=== PATIENT | female | born 1995 | race Caucasian/White ===

== ENCOUNTER 2018-04-10 14:45 | Emergency (ER) | payer MEDICAID, SELFPAY ==
[2018-04-10 14:46] VITALS: BP 140/75; PULSE 86; RESP 16; TEMP 36.9; O2SAT 97; BMI 18.3
--- NOTE | 2018-04-10 15:17 | ED.DCSUM_ITS ---
- ER Visit Summary Date of Service: 04/10/18 Chief Complaint: Vaginal bleeding and right pelvic pain History of Present Illness: The patient is a 22 F who presents for vaginal bleeding and right-sided pelvic pain since last night. Patient has the Mirena IUD in place for approximately 1 year. She states her periods stopped shortly after placement. She is now having the crampy pain that she rates it a 10 out of 10 and constant. Vaginal bleeding is similar to a period. Patient states she is not but did not know she could get with the Mirena in place. She has been having sexual intercourse. She has been vomiting and had diarrhea 2 days ago that resolved. She denies fever or urinary symptoms. No medical history other than depression and anxiety. She has not missed any of her medications or had any medication changes recently. Physical Examination: Vital signs: afebrile, hemodynamically stable, no hypoxia on room air General: well nourished, well developed, in no distress Skin: warm, dry, no rash, no pallor HEENT: normocephalic and atraumatic; PERRL, EOMI, moist mucous membranes Cardiovascular: regular rate and rhythm without murmurs, no peripheral edema, 2+ pulses all distal extremities Respiratory: No increased work of breathing, lungs are clear to auscultation bilaterally, no rales, rhonchi or wheezing Abdominal: Abdomen is soft, tender in the right pelvic region and suprapubic region without mass noted, with normoactive bowel sounds, no guarding or rebound, no masses, no tenderness to McBurney's point MSK: Moves all extremities, no deformities, normal strength Neuro: Awake and alert, oriented ?4. No facial droop, sensation and motor function intact and symmetric Test Results: Abnormal Lab Results 04/10/18 04/10/18 04/10/18 15:35 15:35 16:35 WBC 7.8 RBC 5.07 Hgb 14.7 Hct 44.2 MCV 87.2 MCH 29.0 MCHC 33.3 RDW 13.8 RDW Differential 43.7 Plt Count 183 MPV 10.6 Immature Gran % (Auto) 0.100 Neut % (Auto) 68.5 Lymph % (Auto) 23.9 [place] % (Auto) 5.4 Eos % (Auto) 1.8 Baso % (Auto) 0.3 Absolute Neuts (auto) 5.3 Absolute Lymphs (auto) 1.86 Total Counted Not Reportable Sodium 141 Potassium 4.1 Chloride 108 H Carbon Dioxide 24.0 Anion Gap 9 BUN 12 Creatinine 0.78 Estim Creat Clear Calc 79.64 Est GFR (MDRD) Af Amer 117 Est GFR (MDRD) Non-Af 97 BUN/Creatinine Ratio 15.5 Glucose 87 Calcium 9.6 Total Bilirubin 0.50 AST 22 ALT 22 Alkaline Phosphatase 80 Total Protein 7.2 Albumin 4.2 Globulin 3.0 Albumin/Globulin Ratio 1.4 Urine Color Urine Clarity Urine pH Ur Specific [place] Urine Protein Urine Glucose (UA) Urine Ketones Urine Occult Blood Urine Nitrite Urine Bilirubin Urine Urobilinogen Ur Leukocyte Esterase Urine RBC Urine WBC Ur Squamous Epith Cells Urine Bacteria Urine Mucus Urine Test Chlam trachomat DNA PCR Negative N.gonorrhoeae DNA (PCR) Negative 04/10/18 04/10/18 16:35 16:35 WBC RBC Hgb Hct MCV MCH MCHC RDW RDW Differential Plt Count MPV Immature Gran % (Auto) Neut % (Auto) Lymph % (Auto) [place] % (Auto) Eos % (Auto) Baso % (Auto) Absolute Neuts (auto) Absolute Lymphs (auto) Total Counted Sodium Potassium Chloride Carbon Dioxide Anion Gap BUN Creatinine Estim Creat Clear Calc Est GFR (MDRD) Af Amer Est GFR (MDRD) Non-Af BUN/Creatinine Ratio Glucose Calcium Total Bilirubin AST ALT Alkaline Phosphatase Total Protein Albumin Globulin Albumin/Globulin Ratio Urine Color Yellow Urine Clarity Clear Urine pH 6.0 Ur Specific [place] 1.020 Urine Protein Negative Urine Glucose (UA) Normal Urine Ketones Negative Urine Occult Blood 250 H Urine Nitrite Negative Urine Bilirubin Negative Urine Urobilinogen Normal Ur Leukocyte Esterase Negative Urine RBC 25-50 SEEN Urine WBC 0 SEEN Ur Squamous Epith Cells 0-5 SEEN Urine Bacteria RARE Urine Mucus 0 SEEN Urine Test Negative Chlam trachomat DNA PCR N.gonorrhoeae DNA (PCR) Medications Given Discontinued Medications Acetaminophen (Tylenol) 1,000 mg PO X1 ONE Stop: 04/10/18 15:16 Last Admin: 04/10/18 15:28 Dose: 1,000 mg Sodium Chloride () 1,000 mls @ 1,000 mls/hr IV .Q1H ONE Stop: 04/10/18 16:13 Last Admin: 04/10/18 15:37 Dose: 1,000 mls/hr Emergency Department Course and Treatment: Patient was given IV fluids and Tylenol for her pain. was negative, making ectopic of the differential. Patient had no significant anemia or electrolyte derangements. Urine was negative for infection and positive for blood. Pelvic exam did show mild active bleeding with no clots or tissue, no discharge. No cervical motion tenderness, adnexal tenderness or masses. Patient's pain is been constant, and torsion is unlikely given the description of her pain and her exam. GC and Chlamydia were negative. Patient had resolution of her symptoms after the Tylenol. We discussed that she is likely having a menstrual period with ass ociated cramping. She was encouraged to follow-up with her slack line yarder if she continues to have concerns for the bleeding with the Mirena in place. Patient agreed with this plan and was discharged home in improved condition. Treatment Plan: [] Disposition: Dysmenorrhea Impression: [] This note was generated with [employer] dictation software. It may contain incorrect words, spelling, and punctuation that were not noted in review of the chart prior to signing ED Disposition - Plan for ED Patient: Disposition: Home or Assisted Living Chief Complaint: Vag Bleeding Instructions: ED Cramping Menstrual, ED Bleeding Menstrual Heavy Referrals: Cindi Salter, MICHAEL-C [Primary Care Provider] - 1 Week if not improving Additional Instructions: Your vaginal bleeding and lower pelvic cramping is likely a menstrual period. Please take [id number] ibuprofen, naproxen or Tylenol as needed for pain. Follow-up with your slack line yarder if you continue to have heavy bleeding after 5 to 7 days. If you have any worsening of your condition or any new concerning symptoms, please return immediately to the emergency department for another evaluation.
[2018-04-10] MEDS: Acetaminophen 500 MG Tablet 1000 MG PO (15:28)
[2018-04-10] MEDS: 0.9% Normal Saline 1,000 ML 1000 ML IV (15:37)
[2018-04-10 15:48] LABS: Absolute Lymphocyte Count 1.86 X10^3/ul (0.83-4.51); Absolute Neutrophil Count 5.3 X10^3/uL (2.0-7.7); Basophil# 0.02 X10^3/uL; Basophil% 0.3 % (0-1); Eosinophil# 0.14 X10^3/uL; Eosinophils% 1.8 % (0-5); Hematocrit 44.2 % (37-47); Hemoglobin 14.7 g/dl (12.0-15.0); Lymphocyte # 1.86 X10^3/ul (4.0); Lymphocyte % 23.9 % (19-41); Mean Corp Hgb Conc 33.3 g/gl (32-36); Mean Corpuscular Volume 87.2 fL (81-99); Mean Platelet Vol. 10.6 fl (6.2-12.0); Monocyte# 0.42 X10^3/uL; Monocyte% 5.4 % (0-10); Neutrophil # 5.33 X10^3/uL (2.7-7.7); Neutrophil % 68.5 % (47-70); POSITIVE COUNT NO; POSITIVE DIFFERENTIAL NO; POSITIVE MORPHOLOGY NO; Platelet Count 183 K/mm3 (150-450); RBC Distribution Width CV 13.8 % (11.6-14.6); RBC Distribution Width SD 43.7 fl (35.1-43.9); Red Blood Count 5.07 M/mm3 (4.2-5.4); White Blood Count 7.8 K/mm3 (4.4-11.0)
[2018-04-10 16:09] LABS: ALB/GLOB Ratio 1.4 RATIO (0.9-2.4); AST(SGOT) 22 U/L (15-37); Alanine Aminotransfer ALT/SGPT 22 U/L (13-56); Albumin, Serum 4.2 g/dL (3.2-5.0); Alkaline Phosphatase 80 U/L (45-117); Anion Gap 9 (5-15); BUN 12 mg/dL (7-18); BUN/Creat Ratio 15.5 RATIO (10-20); Calcium,Total 9.6 mg/dL (8.5-10.1); Chloride 108 mmol/L (98-107); Creatinine, Serum 0.78 mg/dL (0.55-1.02); EST Glomerular Filtration Rate 97 mL/min (>60); Est Glom Filt Rate - Afr Amer 117 mL/min (>60); Estimated Creatinine Clearance 79.64 ml/min; Glucose 87 mg/dL (74-106); Potassium 4.1 mmol/L (3.5-5.1); Protein, Total 7.2 g/dL (6.4-8.2); Sodium Level 141 mmol/L (136-145)
[2018-04-10 16:41] LABS: Mucous, Urine 0 SEEN /hpf (<or=2+); White Blood Cells 0 SEEN /hpf (0-5)
[2018-04-10 16:44] LABS: Internal QC Validated? YES +Cl - CLEAR BKGD; Pregnancy, Urine Negative Negative
[2018-04-10 16:48] LABS: Color, Urine Yellow (Yellow); Glucose, Dipstick Normal (Normal); Ketone-Dipstick Negative (Negative); Leukocyte Esterase-Dipstick Negative /ul (Negative); Nitrite-Dipstick Negative (Negative); Occult Blood-Urine 250 /ul (Negative); Protein-Dipstick Negative (Negative); Urine Bilirubin Dipstick Negative (Negative); Urine Clarity Clear (Clear); Urine Urobilinogen Normal (Normal)
[2018-04-10 16:49] LABS: Red Blood Cells-Urine 25-50 SEEN /hpf (0-5); Squamous Epithelial Cells - UA 0-5 SEEN /hpf (5-10)
[2018-04-10 16:50] LABS: Bacteria RARE /hpf (None Seen)
[2018-04-10 18:22] LABS: Chlamydia Trachomatis by PCR Negative (Negative); Neisserai gonorrhoeae by PCR Negative (Negative); Probe Check PASS; Sample Adequacy Control PASS; Specimen Processing Control PASS
--- NOTE | 2018-04-10 18:24 | ED.DEP ---
ED Disposition - Plan for ED Patient: Disposition: Home or Assisted Living Chief Complaint: Vag Bleeding Instructions: ED Cramping Menstrual, ED Bleeding Menstrual Heavy Referrals: Cindi Salter NP-C [Primary Care Provider] - 1 Week if not improving Additional Instructions: Your vaginal bleeding and lower pelvic cramping is likely a menstrual period. Please take [id number] ibuprofen, naproxen or Tylenol as needed for pain. Follow-up with your ammunition storage superintendent if you continue to have heavy bleeding after 5 to 7 days. If you have any worsening of your condition or any new concerning symptoms, please return immediately to the emergency department for another evaluation.
[2018-04-10 18:38] VITALS: BP 102/69; PULSE 71; RESP 15; O2SAT 98
== END 2018-04-10 18:39 | disposition home or self-care (01) ==
PROVIDERS: Emergency Provider Emergency Medicine; Family Provider Nurse Practitioner Family; PCP Nurse Practitioner Family
DX: N94.6 Dysmenorrhea, unspecified (principal); R10.9 Unspecified abdominal pain; R19.7 Diarrhea, unspecified; R11.10 Vomiting, unspecified; Z97.5 Presence of (intrauterine) contraceptive device
CPT/HCPCS: 80053; 81001; 81025; 85025; 87210; 87491; 87591; 96360; 99284; J7030; A4216

== ENCOUNTER 2018-12-19 16:45 | Emergency (ER) | payer MEDICAID, SELFPAY ==
[2018-12-19 16:46] VITALS: BP 114/73; PULSE 92; RESP 18; TEMP 36; O2SAT 96; BMI 17.9
--- NOTE | 2018-12-19 17:10 | CT_ITS ---
STUDY: CT ABDOMEN AND PELVIS WITH CONTRAST REASON FOR EXAM: Female, 23 years old. Right lower quadrant pain. RADIATION DOSAGE (If Supplied By Facility): CTDIvol = ( 15.50 ) mGy, DLP = ( 250.56 ) mGycm TECHNIQUE: Transaxial images were obtained from the dome of the diaphragm to the symphysis pubis with oral contrast. 100ML ml of Isovue 370 contrast was administered. Sagittal and coronal images were reconstructed. Individualized dose optimization techniques were used for this CT. COMPARISON: 01/13/2017 FINDINGS: The visualized lung bases are clear. The visualized portions of the heart and pericardium are within normal limits. There are no calcified gallstones present. The liver is within normal limits. There are no suspicious hepatic lesions. The spleen is normal in size. The pancreas is within normal limits. The adrenal glands are within normal limits. There are bilateral subcentimeter nonobstructing renal collecting system stones, measuring up to 3 mm. There are no ureteral stones. There is no hydronephrosis. There is a simple cyst in the right kidney. There are no left renal lesions. Normal visualized stomach. There is no bowel obstruction or inflammation. The appendix is not visualized. There are bilateral adnexal cysts. There is an intrauterine device noted. The aorta is normal in caliber. There is no abdominal or pelvic free air, free fluid, fluid collection or lymphadenopathy. There are no destructive osseous lesions. CT/Abdomen/Pelvis WITH Contrast IMPRESSION: Bilateral adnexal cysts. This may be physiologic. If indicated, further evaluation with ultrasound can be performed. No bowel obstruction or inflammation. Appendix not visualized. Bilateral subcentimeter nonobstructing renal collecting system stones, measuring up to 3 mm. No ureteral stones No hydronephrosis. Electronically Signed: Lennox Renteria, at 19:18 EDT Tel , Service support ,
--- NOTE | 2018-12-19 17:11 | ED.VIS.GEN ---
History of Present Illness Chief Complaint: Abd Pain Detail of Chief Complaint: Right lower quadrant pain Informant: Patient Onset: Days Context: Gradual Onset Timing: Waxes and wanes Current Severity: Moderate Maximum Severity: Moderate Narrative: Patient presents with waxing and waning right lower quadrant pain for the past 2 days. She denies fever or chills. She denies nausea, vomiting, or diarrhea. She denies urinary symptoms. She has an IUD in place and does not have regular menstrual periods. She does not have a known history of ovarian cysts. Past Medical History - Allergies and Home Meds Allergies/Adverse Reactions: Allergies No Known Allergies Allergy (Verified 12/19/18 16:48) Primary Care Physician: Cindi Salter NP-C [NON-STAFF] - Prior records reviewed: Yes Past Medical History: - - Reviewed Lives: With Family Smoking Status: Never smoker Review of Systems General: Denies: Chills, Fever Eyes: Denies: Visual changes - bilaterally ENT: Denies: Bilateral ear pain Cardiovascular: Denies: Chest pain Respiratory: Denies: Dyspnea Gastrointestinal: Reports: Abdominal pain. Denies: Nausea, Vomiting, Diarrhea Genitourinary: Denies: Dysuria Musculoskeletal: Denies: Back pain Skin: Denies: Rash Neurological: Denies: Headache Endocrine: Denies: Polyuria, Polydipsia Hematologic: Denies: Easy bruising Allergy: Denies: Uticaria Physical Exam Vital Signs/Narrative: Vital Signs Temp Pulse Resp BP Pulse Ox 12/19/18 16:46 96.8 F L 92 18 114/73 96 Inital Vital Signs reviewed: Yes General: Well nourished, Well developed Eyes: Perrl ENT: Moist mucous membranes Neck: Supple Cardiovascular: Regular rate, Regular rhythm Respiratory: No distress, CTA bilaterally Abdomen: Soft, Tender - Moderate tenderness palpation in the right lower quadrant with guarding., Guarding, Hypoactive bowel sounds. Negative for: Rebound tenderness Back: Nontender Extremities: Nontender Skin: Normal color Neurological: Alert, Oriented x3 Psychological: Normal affect Diagnostic/Tx/Re-eval Impressions Abdomen/Pelvis CT 12/19/18 17:10 IMPRESSION: Bilateral adnexal cysts. This may be physiologic. If indicated, further evaluation with ultrasound can be performed. No bowel obstruction or inflammation. Appendix not visualized. Bilateral subcentimeter nonobstructing renal collecting system stones, measuring up to 3 mm. No ureteral stones No hydronephrosis. Electronically Signed: Lennox Renteria, at 19:18 EDT Tel , Service support , 12/19/18 17:10 Abdomen/Pelvis WITH Contrast [CT] Stat Laboratory Results 12/19/18 12/19/18 12/19/18 17:25 17:25 17:25 WBC 13.4 H RBC 4.56 Hgb 13.5 Hct 40.9 MCV 89.7 MCH 29.6 MCHC 33.0 RDW Std Deviation 42.5 RDW Coeff of Yasmin 12.9 Plt Count 235 MPV 10.8 Immature Gran % (Auto) 0.400 Neut % (Auto) 77.3 H Lymph % (Auto) 15.0 L [place] % (Auto) 6.5 Eos % (Auto) 0.5 Baso % (Auto) 0.3 Absolute Neuts (auto) 10.4 H Absolute Lymphs (auto) 2.01 Nucleated RBC % 0 Sodium 142 Potassium 3.5 Chloride 108 H Carbon Dioxide 29.0 Anion Gap 5 BUN 6 L Creatinine 0.64 Estim Creat Clear Calc 94.61 Est GFR (MDRD) Af Amer 144 Est GFR (MDRD) Non-Af 119 BUN/Creatinine Ratio 9.3 L Glucose 74 Calcium 9.5 Total Bilirubin 0.60 Direct Bilirubin 0.22 AST 8 L ALT 16 Alkaline Phosphatase 88 Total Protein 7.0 Albumin 3.3 Globulin 3.7 Serum , Qual NEGATIVE Urine Color Urine Clarity Urine pH Ur Specific [place] Urine Protein Urine Glucose (UA) Urine Ketones Urine Occult Blood Urine Nitrite Urine Bilirubin Urine Urobilinogen Ur Leukocyte Esterase Urine RBC Urine WBC Ur Squamous Epith Cells Amorphous Sediment Urine Bacteria Urine Mucus 12/19/18 18:30 WBC RBC Hgb Hct MCV MCH MCHC RDW Std Deviation RDW Coeff of Yasmin Plt Count MPV Immature Gran % (Auto) Neut % (Auto) Lymph % (Auto) [place] % (Auto) Eos % (Auto) Baso % (Auto) Absolute Neuts (auto) Absolute Lymphs (auto) Nucleated RBC % Sodium Potassium Chloride Carbon Dioxide Anion Gap BUN Creatinine Estim Creat Clear Calc Est GFR (MDRD) Af Amer Est GFR (MDRD) Non-Af BUN/Creatinine Ratio Glucose Calcium Total Bilirubin Direct Bilirubin AST ALT Alkaline Phosphatase Total Protein Albumin Globulin Serum , Qual Urine Color Yellow Urine Clarity Cloudy Urine pH 7.0 Ur Specific [place] 1.010 Urine Protein 15 H Urine Glucose (UA) Normal Urine Ketones Negative Urine Occult Blood 25 H Urine Nitrite Negative Urine Bilirubin Negative Urine Urobilinogen Normal Ur Leukocyte Esterase 500 H Urine RBC 0-5 SEEN Urine WBC >100 SEEN Ur Squamous Epith Cells 0-5 SEEN Amorphous Sediment 1+ PHOS Urine Bacteria RARE Urine Mucus 0 SEEN - Medical Decision Making Patient is focally tender to the right lower quadrant on exam. She denies vaginal discharge. CT scan reveals bilateral ovarian cysts with no evidence of free fluid or inflammation. Laboratory evaluation is unremarkable. Urine will be sent for a culture. She received 3 days of Bactrim and started on anti-inflammatory. She will follow-up with her EXECUTIVE OFFICE MANAGER at [facility]. ED Disposition - Plan for ED Patient: Disposition: Home or Assisted Living Diagnosis: Ovarian cyst, UTI (urinary tract infection) Instructions: Ovarian Cyst, Urinary Tract Infections in Women Prescriptions: Smz/Tmp Ds [Bactrim Ds] 1 tablet PO BID #6 tablet Naproxen [Naprosyn] 500 mg PO BID PRN #14 tablet PRN Reason: Pain Referrals: Cindi Salter, MICHAEL-C [NON-STAFF] - Sarahi Ortega CNM [Certified Nurse Gis Scientist] - 1 Week
[2018-12-19] MEDS: 0.9% Normal Saline 1,000 ML 100 ML IV (17:21)
[2018-12-19] MEDS: Morphine 2 MG/ML Syringe IV (17:22)
[2018-12-19] MEDS: Ondansetron 4 MG/2 ML Vial IV (17:22)
[2018-12-19 17:29] VITALS: BP 117/75; PULSE 76; RESP 16; O2SAT 98
[2018-12-19 17:38] LABS: Absolute Lymphocyte Count 2.01 X10^3/uL (0.83-4.51); Absolute Neutrophil Count 10.4 X10^3/uL (2.0-7.7); Basophil# 0.04 X10^3/uL; Basophil% 0.3 % (0-1); Eosinophil# 0.07 X10^3/uL; Eosinophils% 0.5 % (0-5); Hematocrit 40.9 % (37-47); Hemoglobin 13.5 g/dL (12.0-15.0); Lymphocyte # 2.01 X10^3/ul (4.0); Mean Corpuscular Hgb 29.6 pg (27.0-32.0); Mean Corpuscular Volume 89.7 fL (81-99); Mean Platelet Vol. 10.8 fl (6.2-12.0); Monocyte# 0.88 X10^3/uL; Monocyte% 6.5 % (0-10); NRBC Flagged by Analyzer 0 % (0-5); Neutrophil # 10.38 X10^3/uL (2.7-7.7); Neutrophil % 77.3 % (47-70); Platelet Count 235 K/mm3 (150-450); RBC Distribution Width CV 12.9 % (11.6-14.6); RBC Distribution Width SD 42.5 fl (35.1-43.9); Red Blood Count 4.56 M/mm3 (4.2-5.4); White Blood Count 13.4 K/mm3 (4.4-11.0)
[2018-12-19 17:46] LABS: Internal QC Validated? YES +Cl - CLEAR BKGD; Pregnancy, Serum, hCG Quali. NEGATIVE Negative
[2018-12-19 17:51] LABS: AST(SGOT) 8 U/L (15-37); Alanine Aminotransfer ALT/SGPT 16 U/L (13-56); Albumin, Serum 3.3 g/dL (3.2-5.0); Alkaline Phosphatase 88 U/L (45-117); Anion Gap 5 (5-15); BUN 6 mg/dL (7-18); BUN/Creat Ratio 9.3 RATIO (10-20); Bilirubin, Direct 0.22 mg/dL (0.00-0.30); Calcium,Total 9.5 mg/dL (8.5-10.1); Chloride 108 mmol/L (98-107); Creatinine, Serum 0.64 mg/dL (0.55-1.02); EST Glomerular Filtration Rate 119 mL/min (>60); Est Glom Filt Rate - Afr Amer 144 mL/min (>60); Estimated Creatinine Clearance 94.61 ml/min; Globulin 3.7 g/dL (2.2-4.2); Glucose 74 mg/dL (74-106); Potassium 3.5 mmol/L (3.5-5.1); Sodium Level 142 mmol/L (136-145)
[2018-12-19 18:37] LABS: Mucous, Urine 0 SEEN /hpf (<or=2+)
[2018-12-19 18:52] LABS: Color, Urine Yellow (Yellow); Glucose, Dipstick Normal (Normal); Ketone-Dipstick Negative (Negative); Leukocyte Esterase-Dipstick 500 /ul (Negative); Nitrite-Dipstick Negative (Negative); Occult Blood-Urine 25 /ul (Negative); Protein-Dipstick 15 mg/dl (Negative); Urine Bilirubin Dipstick Negative (Negative); Urine Clarity Cloudy (Clear); Urine Urobilinogen Normal (Normal)
[2018-12-19 19:02] LABS: Amorphous Sediment 1+ PHOS; Bacteria RARE /hpf (None Seen); Red Blood Cells-Urine 0-5 SEEN /hpf (0-5); Squamous Epithelial Cells - UA 0-5 SEEN /hpf (5-10); White Blood Cells >100 SEEN /hpf (0-5)
[2018-12-19 19:06] VITALS: RESP 16
[2018-12-19] MEDS: Smz/Tmp Ds Tablet 1 TABLET PO (20:04)
[2018-12-19 20:07] VITALS: PULSE 85; RESP 17; O2SAT 95
[2018-12-19 22:23] LABS: Chlamydia Trachomatis by PCR POSITIVE (Negative); Neisserai gonorrhoeae by PCR Positive (Negative); Probe Check PASS
--- NOTE | 2018-12-20 20:35 | ED.RN ---
attempted to contact patient again at this time. unable to reach or leave a voicemail. spoke with mother who is next of kin advised her to please call in and speak to nursing staff about test results. patient was attempted to be contacted at 10:15, 12:21, 16:25, 17:22 by previous shift
--- NOTE | 2018-12-20 20:44 | ED.RN ---
patient contacted and made aware of test results. Advised to treatment plan patient advised to come in for treatment and to have partners tested. patient will be in tomorrow to seek treatment
== END 2018-12-19 20:11 | disposition home or self-care (01) ==
PROVIDERS: Emergency Provider Emergency Medicine; Family Provider Family Medicine; PCP Family Medicine
DX: N83.201 Unspecified ovarian cyst, right side (principal); N39.0 Urinary tract infection, site not specified; Z97.5 Presence of (intrauterine) contraceptive device
CPT/HCPCS: 74177; 80048; 80076; 81001; 84703; 85025; 87086; 87088; 87491; 87591; 96361; 96374; 96375; 99284; J7030; Q9967; A4216; J2405

== ENCOUNTER 2018-12-22 13:43 | Emergency (ER) | payer MEDICAID, SELFPAY ==
[2018-12-22 13:44] VITALS: BP 109/59; PULSE 84; RESP 16; TEMP 36; BMI 18.0
--- NOTE | 2018-12-22 13:52 | ED.VIS.GEN ---
History of Present Illness Chief Complaint: Meds Only Narrative: Patient presenting for medications. Patient was recently in the emergency department for abdominal pain and tested positive for gonorrhea and chlamydia. She denies that she is currently having any abdominal pain vaginal discharge fevers night sweats or unintended weight loss. She is presenting for medications at this time. Past Medical History - Allergies and Home Meds Allergies/Adverse Reactions: Allergies No Known Allergies Allergy (Verified 12/19/18 16:48) Primary Care Physician: Pepe Yates III, MD [Primary Care Provider] - Past Medical History: None Smoking Status: Never smoker Review of Systems All systems negative except as indicated General: Denies: Fever, Weight loss Gastrointestinal: Denies: Abdominal pain Genitourinary: Denies: Dysuria Physical Exam Vital Signs/Narrative: Vital Signs Temp Pulse Resp BP 12/22/18 13:44 96.8 F L 84 16 109/59 L Inital Vital Signs reviewed: Yes General: Well nourished, Well developed, No Acute Distress Head: Normocephalic, Atraumatic Eyes: Perrl, EOMI ENT: Moist mucous membranes, No rhinorrhea Neck: Supple, Nontender Cardiovascular: Regular rate, Regular rhythm, No murmurs Respiratory: No distress, CTA bilaterally, Chest nontender Abdomen: Soft, Nontender, Nondistended, Normal bowel sounds Back: Nontender, Normal Inspection Extremities: Nontender, No edema Skin: Normal color, No rash Neurological: Alert, Oriented x3, Cranial nerves II-XII grossly intact, Normal Strength, Normal Sensation Psychological: Normal affect, Normal Mood Diagnostic/Tx/Re-eval - Medical Decision Making Patient presented with positive GC and Chlamydia cultures. I reviewed these in the records. Patient was treated with Rocephin and azithromycin and was discharged. ED Disposition - Plan for ED Patient: Disposition: Home or Assisted Living Diagnosis: Gonorrhea, Chlamydia Instructions: Understanding STDs, CERVICITIS (STD), Treated Referrals: Pepe Yates III, MD [Primary Care Provider] - As Needed
[2018-12-22 14:21] VITALS: RESP 16; BMI 18.0
[2018-12-22] MEDS: Ceftriaxone 500 MG Vial 250 MG IM (14:23)
[2018-12-22] MEDS: Azithromycin 250 MG Tablet 1000 MG PO (14:23)
[2018-12-22 14:26] VITALS: RESP 16
--- NOTE | 2018-12-22 14:42 | CM.ED ---
Social Work Referral: Resources Informant: Self referral Met with patient in room. This social services technician introduced self as well as social services technician role. Patient agreeable to speaking with this social services technician. Patient recently diagnosed with gonorrhea and chlamydia. Patient stating to have an understanding of diagnosis's and treatment. Patient stating to have a primary care physician, Dr. Yates. Patient denies having a ROLL RECLAIMER. This social services technician able to provide patient with list of ROLL RECLAIMER's in the area. Patient plans to contact an ROLL RECLAIMER and establish with care. Patient denies any mental health needs/concerns. Patient thanking this social services technician. All questions answered. Arun HILL, GOMEZ
== END 2018-12-22 14:48 | disposition home or self-care (01) ==
PROVIDERS: Emergency Provider Emergency Medicine; Family Provider Family Medicine; PCP Family Medicine
DX: A54.9 Gonococcal infection, unspecified (principal); A74.9 Chlamydial infection, unspecified
CPT/HCPCS: 99281

== ENCOUNTER 2020-05-27 12:00 | Emergency (ER) | payer MEDICAID, SELFPAY ==
[2020-05-27 12:01] VITALS: BP 115/69; PULSE 103; RESP 18; TEMP 37; O2SAT 98; BMI 18.3
--- NOTE | 2020-05-27 12:13 | ED.VIS.GEN ---
History of Present Illness Chief Complaint: Nausea/Vomiting Informant: Patient Narrative: 24-year-old female G3, P2 at approximately 6 weeks presents with concern for nausea and vomiting. States she is unable to keep things down for the past week. Denies any abdominal pain. Denies any vaginal bleeding or loss of vaginal fluid. Denies any fever or chills. Has any urinary symptoms. Past Medical History - Allergies and Home Meds Allergies/Adverse Reactions: Allergies No Known Allergies Allergy (Verified 05/27/20 12:03) Primary Care Physician: Pepe Yates III, MD [Primary Care Provider] - Prior records reviewed: Yes Past Medical History: None Surgical History: no surgical history Lives: With Family Smoking Status: Never smoker Alcohol: None Drugs: None Review of Systems General: Denies: Chills, Fever, Sweats Eyes: Denies: Visual changes - bilaterally, Diplopia ENT: Denies: Rhinorrhea, Sore throat Cardiovascular: Denies: Chest pain, Palpitations Respiratory: Denies: Dyspnea, Cough, Dyspnea on exertion Gastrointestinal: Reports: Nausea, Vomiting. Denies: Abdominal pain, Diarrhea, Melena, Hematochezia Genitourinary: Denies: Dysuria, Hematuria, Frequency Musculoskeletal: Denies: Back pain, Extremity Pain Skin: Denies: Rash, Wounds Neurological: Denies: Headache, Weakness, Numbness Physical Exam Vital Signs/Narrative: Vital Signs Temp Pulse Resp BP Pulse Ox 05/27/20 12:01 98.6 F 103 H 18 115/69 98 Inital Vital Signs reviewed: Yes General: Well nourished, Well developed, No Acute Distress Head: Normocephalic, Atraumatic Eyes: Perrl, EOMI ENT: Moist mucous membranes, No rhinorrhea Neck: Supple, Nontender Cardiovascular: Regular rate, Regular rhythm, No murmurs Respiratory: No distress, CTA bilaterally, Chest nontender Abdomen: Soft, Nontender, Nondistended, Normal bowel sounds Back: Nontender, Normal Inspection Extremities: Nontender, No edema Skin: Normal color, No rash Neurological: Alert, Oriented x3, Cranial nerves II-XII grossly intact, Normal Strength, Normal Sensation Psychological: Normal affect, Normal Mood Diagnostic/Tx/Re-eval Laboratory Data 05/27/20 12:22 Urine Color Yellow Urine Clarity Sl. Cloudy Urine pH 6.5 Ur Specific [place] 1.020 Urine Protein 30 H Urine Glucose (UA) Normal Urine Ketones 150 H Urine Occult Blood Negative Urine Nitrite Negative Urine Bilirubin Negative Urine Urobilinogen 4 H Ur Leukocyte Esterase 25 H Urine RBC 0 SEEN Urine WBC 0-5 SEEN Ur Squamous Epith Cells 0-5 SEEN Urine Bacteria 1+ Urine Mucus 1+ Urine Test Positive H - Medical Decision Making Appears well and nontoxic. Slightly tachycardic. Patient given 1 L of normal saline as well as Zofran. Patient has a slight ketonuria without evidence of infection. Patient feeling much improved following Zofran will be given this for home. Advised on continued hydration. Asked to keep her appointment with her UPKEEP WORKER next week. Asked to return for new or worsening symptoms. Patient agreeable and discharged home in stable condition. Impression: 1. Nausea and vomiting in first trimester ED Disposition - Plan for ED Patient: Disposition: Home or Assisted Living Instructions: ED Vomiting (Adult), Care for a Healthy Baby Prescriptions: Ondansetron [Zofran Odt] 4 mg PO Q8H PRN PRN #10 tab PRN Reason: Nausea Prescription Printed Referrals: Pepe Yates III, MD [Primary Care Provider] - 2 Days
[2020-05-27 12:28] LABS: Red Blood Cells-Urine 0 SEEN /hpf (0-5)
[2020-05-27] MEDS: 0.9% Normal Saline 1,000 ML 999 ML IV (12:30)
[2020-05-27] MEDS: Ondansetron 4 MG/2 ML Vial IV (12:30)
[2020-05-27 12:38] LABS: Color, Urine Yellow (Yellow); Glucose, Dipstick Normal (Normal); Leukocyte Esterase-Dipstick 25 /ul (Negative); Nitrite-Dipstick Negative (Negative); Occult Blood-Urine Negative /ul (Negative); Protein-Dipstick 30 mg/dl (Negative); Urine Bilirubin Dipstick Negative (Negative); Urine Clarity Sl. Cloudy (Clear); Urine Urobilinogen 4 mg/dl (Normal); Urine pH 6.5 (5.0 - 8.0)
[2020-05-27 12:41] LABS: Ketone-Dipstick 150 mg/dl (Negative)
[2020-05-27 12:43] LABS: Bacteria 1+ /hpf (None Seen); Mucous, Urine 1+ /hpf (<or=2+); Squamous Epithelial Cells - UA 0-5 SEEN /hpf (5-10); White Blood Cells 0-5 SEEN /hpf (0-5)
[2020-05-27 12:44] LABS: Internal QC Validated? YES +Cl - CLEAR BKGD; Pregnancy, Urine Positive Negative
--- NOTE | 2020-05-27 12:45 | ED.RN ---
DR NOTIFIED OF + PREG RESULTS AND URINE [id number]. NNO VOICED.
[2020-05-27 13:56] VITALS: BP 110/78; PULSE 88; RESP 18; O2SAT 98
== END 2020-05-27 13:56 | disposition home or self-care (01) ==
PROVIDERS: Emergency Provider Emergency Medicine; PCP Family Medicine
DX: O21.9 Vomiting of pregnancy, unspecified (principal); Z3A.01 Less than 8 weeks gestation of pregnancy
CPT/HCPCS: 81001; 81025; 96361; 96374; 99282; J7030; A4216; J2405

== ENCOUNTER 2021-01-23 09:25 | Inpatient (IN) | payer MEDICAID, SELFPAY ==
[2021-01-23] VITALS (42 sets, daily range): BP systolic 93–137; BP diastolic 51–92; PULSE 62–122; RESP 16–18; TEMP 35.9–36.9; O2SAT 93–100; BMI 25.3
[2021-01-23 08:56] LABS: ROM Internal Control Test YES-OK TO RESULT pt. (Internal QC); ROM Patient Test Negative (Negative)
--- NOTE | 2021-01-23 09:02 | PCM.HP.OB ---
HPI - General General Date of Admission: 01/23/21 HPI Narrative GABRIELLE TEJADA, is a 25 F at 40.6 weeks who presents to unit with contractions that started this morning. Denies any loss of fluid or vaginal bleeding. Positive movement. Patient was scheduled for an induction of labor today for postdates. complicated by benign gestational thrombocytopenia, positive GBS, and Rubella non-immune status. Maternal Data Information LUPE Calculator Estimated Delivery Date Method Current WG Current Estimate 01/17/21 Manual 40w 6d PFSH PFSH Medical History Anxiety Depression macrosomia Home Medications ondansetron 4 mg PO Q8H PRN PRN #10 tab 05/27/20 [Rx Last Taken Unknown] vit-iron fum-folic ac [ Fa] 1 tab PO DAILY 01/23/21 [History Last Taken Unknown] Allergy/AdvReac Type Severity Reaction Status Date / Time No Known Allergies Allergy Verified 01/23/21 08:09 Surgical History no surgical history Social History Smoking Status: Never smoker History Elective abortions Hx Para 2 Spontaneous abortions Hx # Term Pregnancies Ectopic pregnancies Hx # Pregnancies Multiple births # of living children NST FHR Rate Baby A Baseline: 125 Variability:: Moderate Accelerations:: 15 x 15 Decelerations:: None NST Reactive:: Yes FHR Category:: Category I Uterine Activity:: TOCO reading every 2-5 minutes- palpate moderate and relaxed in between ROS Eyes Eyes: Denies blurry vision, change in vision or spots in vision ENT HEENT: Denies dizziness or headache(s) Cardiovascular Cardiovascular: Denies abdominal pain, chest pain or dyspnea Respiratory/Chest Respiratory/Chest: Denies cough, dyspnea, shortness of breath at rest or shortness of breath with exertion Gastrointestinal Gastrointestinal: Denies abdominal pain, diarrhea or vomiting Genitourinary Genitourinary: Denies change in urinary stream, difficulty urinating or dysuria Musculoskeletal Musculoskeletal: Reports none Integumentary Integumentary: Denies rash Neurologic Neurologic: Denies dizziness, headache(s), memory loss or weakness Psychiatric Psychiatric: Reports none Vital Signs Vital Signs Vital Signs: 01/23/21 08:16 01/23/21 10:29 01/23/21 10:34 Temperature 97.0 F L Temperature Source Temporal Pulse Rate 86 79 119 H Blood Pressure 117/74 108/78 BP Systolic 117 108 BP Diastolic 74 78 Pulse Ox 99 100 99 01/23/21 10:39 01/23/21 10:57 01/23/21 10:58 Temperature Temperature Source Pulse Rate 104 H 88 97 Blood Pressure 118/66 BP Systolic 118 BP Diastolic 66 Pulse Ox 99 93 01/23/21 11:00 01/23/21 11:03 01/23/21 11:05 Temperature Temperature Source Pulse Rate 96 91 Blood Pressure 137/92 H BP Systolic 137 BP Diastolic 92 Pulse Ox 99 98 01/23/21 11:06 01/23/21 11:10 01/23/21 11:11 Temperature Temperature Source Pulse Rate 98 112 H Blood Pressure 129/66 H 129/71 H BP Systolic 129 129 BP Diastolic 66 71 Pulse Ox 97 01/23/21 11:15 01/23/21 11:16 01/23/21 11:20 Temperature Temperature Source Pulse Rate 98 90 90 Blood Pressure 121/70 H BP Systolic 121 BP Diastolic 70 Pulse Ox 98 99 01/23/21 11:22 01/23/21 11:25 01/23/21 11:26 Temperature Temperature Source Pulse Rate 81 85 83 Blood Pressure 115/77 117/68 BP Systolic 115 117 BP Diastolic 77 68 Pulse Ox 98 01/23/21 11:30 01/23/21 11:31 01/23/21 11:35 Temperature Temperature Source Pulse Rate 78 78 Blood Pressure 109/70 BP Systolic 109 BP Diastolic 70 Pulse Ox 99 97 01/23/21 11:36 01/23/21 11:40 01/23/21 11:42 Temperature Temperature Source Pulse Rate 75 78 77 Blood Pressure 99/58 L 104/64 BP Systolic 99 104 BP Diastolic 58 64 Pulse Ox 100 01/23/21 11:45 01/23/21 11:47 01/23/21 11:50 Temperature Temperature Source Pulse Rate 81 73 Blood Pressure 110/55 L BP Systolic 110 BP Diastolic 55 Pulse Ox 100 100 01/23/21 11:51 01/23/21 12:32 01/23/21 14:06 Temperature 97.1 F L 97.6 F L Temperature Source Temporal Temporal Pulse Rate 75 71 72 Blood Pressure 113/59 L 106/55 L 102/55 L BP Systolic 113 106 102 BP Diastolic 59 55 55 Pulse Ox 100 100 01/23/21 15:11 01/23/21 15:12 01/23/21 15:23 Temperature Temperature Source Pulse Rate 122 H 72 97 Blood Pressure 99/58 L 93/59 L BP Systolic 99 93 BP Diastolic 58 59 Pulse Ox 98 01/23/21 15:46 01/23/21 15:55 01/23/21 16:00 Temperature 98.4 F Temperature Source Pulse Rate 92 95 Blood Pressure 134/62 H 133/65 H BP Systolic 134 133 BP Diastolic 62 65 Pulse Ox 01/23/21 16:10 01/23/21 16:25 01/23/21 16:40 Temperature Temperature Source Pulse Rate 75 62 76 Blood Pressure 128/62 H 117/58 L 128/59 H BP Systolic 128 117 128 BP Diastolic 62 58 59 Pulse Ox Weight Weight: 138 lb 10.732 oz Body Mass Index (BMI) 25.3 Physical Exam Const alert, oriented x3 and no apparent distress General Appearance: cooperative Orientation / Consciousness: awake Exam Limitations: no limitations HEENT normocephalic Head and Scalp: normal to inspection Eyes General Eye: normal appearance of both eyes Neck full ROM and no lymphadenopathy Lymph Lymphatic: no lymphadenopathy noted Chest inspection of chest normal Resp normal respiratory effort, normal air movement and clear to auscultation bilaterally Effort and Inspection: able to speak in complete sentences and symmetric chest movement Cardio regular rate and regular rhythm GI normal to inspection, nondistended, normoactive bowel sounds Manual OB Exam: dilated 3.5, effaced 80 and station -2 Back/Spine normal ROM Extremity full ROM and no calf tenderness Skin no rashes or lesions noted General Skin Exam: no breakdown Neuro oriented x3 and CN's II-XII intact bilaterally Psych mental status grossly normal and thought process normal Labs Labs Labs: Blood Type O POSITIVE Antibody Screen NEGATIVE Hct 38.6 % (37-47) Hgb 13.3 g/dL (12.0-15.0) Neisseria gonorrhoeae DNA (RUBIA) Negative (Negative-) C.trachomatis DNA (PCR) POSITIVE (Negative) H Rhogam given: No Rubella non immune HB- neg HC- neg RPR- NR HIV- NR GC/CH- negative GBS - positive Covid 19- negative on 01/20/21 Assessment & Plan (1) Spontaneous onset of labor: (2) 40 weeks gestation of : (3) Benign gestational thrombocytopenia: QUALIFIERS: Trimester: unspecified trimester Qualified Code(s): O99.119 - Other diseases of the blood and blood-forming organs and certain disorders involving the immune mechanism complicating , unspecified trimester; D69.6 - Thrombocytopenia, unspecified COMMENT: 12/24/20 platelets 124 (4) History of depression: PLAN: Admit to labor and delivery Routine labs Start IV fluids and titrate per orders GBS positive- Start PCN 5 million units IV x 1 then PCN 3 million units IV every 4 hours until delivery Epidural when indicated Start Pitocin IV and titrate per policy Anticipate Dr. Pineda notified of admission and is collaborating physician
[2021-01-23] MEDS: Lactated Ringers 1,000 ML 50 ML IV (09:50)
[2021-01-23] MEDS: Lactated Ringers 500 ML 999 ML IV (10:00)
[2021-01-23 10:07] LABS: Absolute Lymphocyte Count 1.75 X10^3/uL (0.83-4.51); Absolute Neutrophil Count 9.3 X10^3/uL (2.0-7.7); Basophil# 0.04 X10^3/uL; Basophil% 0.3 % (0-1); Eosinophil# 0.06 X10^3/uL; Eosinophils% 0.5 % (0-5); Hematocrit 38.6 % (37-47); Hemoglobin 13.3 g/dL (12.0-15.0); Lymphocyte # 1.75 X10^3/ul (0.83-4.51); Lymphocyte % 14.8 % (19-41); Mean Corp Hgb Conc 34.5 g/dL (32-36); Mean Platelet Vol. 12.3 fl (6.2-12.0); Monocyte# 0.58 X10^3/uL; Monocyte% 4.9 % (0-10); NRBC Flagged by Analyzer 0 % (0-5); Neutrophil # 9.29 X10^3/uL (2.7-7.7); Neutrophil % 78.6 % (47-70); Platelet Count 119 K/mm3 (150-450); RBC Distribution Width CV 12.7 % (11.6-14.6); RBC Distribution Width SD 41.6 fl (35.1-43.9); Red Blood Count 4.29 M/mm3 (4.2-5.4); White Blood Count 11.8 K/mm3 (4.4-11.0)
[2021-01-23 10:42] LABS: Amphetamine Urine VISTA NEGATIVE (<1000 ng/mL); Barbiturate Urine VISTA NEGATIVE (< 200 ng/mL); Benzodiazepine Urine VISTA NEGATIVE (< 200 ng/mL); Cocaine Urine VISTA NEGATIVE (< 300 ng/mL); Ecstacy Urine VISTA NEGATIVE (< 500 ng/mL); Methadone Urine VISTA NEGATIVE (< 300 ng/mL); PCP Urine VISTA NEGATIVE (< 25 ng/mL); THC Urine VISTA NEGATIVE (< 50 ng/mL); Vista UDS pH Range 7
[2021-01-23] MEDS: fentaNYL-bupivacaine (epidural) 100 ML BAG EPIDURAL (11:26)
[2021-01-23] MEDS: Oxytocin 30 units/NS 500 ml 30 UNITS/500 ML IV.SOLN IV (11:37)
--- NOTE | 2021-01-23 13:08 | PCM.PN.BLA ---
Progress Note Patient seen at bedside. Comfortable with epidural anesthesia. Physical Exam Const alert and no apparent distress General Appearance: cooperative and comfortable Exam Limitations: no limitations HEENT normocephalic Eyes General Eye: normal appearance of both eyes Neck full ROM General: normal visual inspection Chest Chest: symmetrical chest wall rise Resp normal respiratory effort and normal air movement Effort and Inspection: symmetric chest movement Auscultation: clear to auscultation bilaterally Cardio regular rate and regular rhythm GI normal to inspection, nondistended, normoactive bowel sounds Manual OB Exam: dilated 4.5, effaced 80 and station 0 Amniotic Fluid: clear amniotic fluid Back/Spine normal ROM Extremity full ROM and no calf tenderness General Extremity: normal exam except as noted Skin no rashes or lesions noted Neuro CN's II-XII intact bilaterally Psych mental status grossly normal Assessment & Plan Assessment/Plan (1) Spontaneous rupture of amniotic membranes: (2) Spontaneous onset of labor: (3) 40 weeks gestation of : PLAN: Continue present plan of care Pitocin IV - continue to titrate per policy SROM for clear fluid IUPC placed without difficulty Anticipate
[2021-01-23] MEDS: Penicillin G 3,000,000 Units 50 ML 100 UNITS IV (14:08)
[2021-01-23] MEDS: Oxytocin 30 units/NS 500 ml 30 UNITS/500 ML IV.SOLN 334 UNITS IV (14:45)
--- NOTE | 2021-01-23 15:21 | EX.PCM.OBRPT ---
Assessment & Plan (1) (spontaneous vaginal delivery): (2) hemorrhage, delivered, current hospitalization: Maternal Data Information LUPE Calculator Estimated Delivery Date Method Current WG Current Estimate 01/17/21 Manual 40w 6d Vaginal Delivery Maternal Presentation Maternal Presentation: - (Spontaneous labor) Maternal Presentation: Patient at 40.6 weeks gestation that presented in spontaneous labor. S.R.O.M for clear fluid after admission. Operative Information Date of Procedure: 01/23/21 Pre-Operative Diagnosis: Term gestation, spontaneous labor, spontaneous rupture of membranes Post-Operative Diagnosis: , live female infant Surgery / Procedure Performed: Spontaneous Vaginal Delivery Type of Anesthesia: Epidural Drain: Bucio to straight drain Estimated Blood Loss: 500 Time of Delivery: 14:43 Findings Description of Procedure: Called to room for delivery. Patient was complete and +2 station. Pushing well with contractions. head delivered with minimal maternal effort over intact perineum. Anterior shoulder, posterior shoulder and remainder of body delivered with second maternal push. Vigorous female placed on maternal abdomen. Pitocin IV started for active management of the third stage of labor. Cord blood collected from 3 vessel cord. Cord clamped and cut by FOB after 2 minute delay. Infant placed immediately skin to skin with patient. Placenta delivered spontaneously and intact several minutes later. After delivery of placenta a significant amount of bleeding noted. Uterus boggy upon palpation. No lacerations noted to vagina or perineum. Methergine IM x 1 given. Vaginal sweep completed with minimal clots expressed. Uterine exploration completed with no retained products felt on exam. Pitocin IV running wide open and uterus remained slightly boggy. Cytotec 1000 mcg VA placed. Uterus became firm and bleeding decreased. EBL 500 cc. APGARS 9/9. Patient and bonding at this time. Dr. Pineda updated on delivery and patient status. Presentation: Vertex Amniotic Membrane Rupture Type: Spontaneous Time of Membrane Rupture: 1200 Amniotic Fluid Description: Clear Placental Delivery Description: Spontaneous Placenta Disposition: [facility] Cord Vessel Description: 3 Vessels Cord Entanglement: None Infant A Gender: Female (1 minute): 9 (5 minute): 9 Delayed Cord Clamping: Yes Post Vaginal Delivery Medications Given After Delivery: IV Pitocin, IM Methergin and - (Cytotec VA) Episiotomy Description: None Laceration: None Complication Complications: None
[2021-01-23 18:27] LABS: Absolute Neutrophil Count 15.4 X10^3/uL (2.0-7.7); Basophil# 0.04 X10^3/uL; Basophil% 0.2 % (0-1); Eosinophil# 0.02 X10^3/uL; Eosinophils% 0.1 % (0-5); Hemoglobin 11.7 g/dL (12.0-15.0); Lymphocyte % 8.4 % (19-41); Mean Corp Hgb Conc 33.4 g/dL (32-36); Mean Corpuscular Hgb 30.5 pg (27.0-32.0); Mean Corpuscular Volume 91.1 fL (81-99); Mean Platelet Vol. 12.1 fl (6.2-12.0); Monocyte# 0.72 X10^3/uL; NRBC Flagged by Analyzer 0 % (0-5); Neutrophil # 15.42 X10^3/uL (2.7-7.7); Neutrophil % 86.7 % (47-70); Platelet Count 122 K/mm3 (150-450); RBC Distribution Width CV 12.7 % (11.6-14.6); RBC Distribution Width SD 41.4 fl (35.1-43.9); Red Blood Count 3.84 M/mm3 (4.2-5.4); White Blood Count 17.8 K/mm3 (4.4-11.0)
--- NOTE | 2021-01-23 18:36 | NURSING ---
Hemorrhage note: checklist completed and on chart. Provider, Christianne Barton CNM, and RN at bedside and hemorrhage completed by 1515. Charge nurse aware
[2021-01-24 03:36] VITALS: BP 103/55; PULSE 85; RESP 16; TEMP 36.7; O2SAT 97
[2021-01-24 05:58] LABS: Absolute Lymphocyte Count 2.31 X10^3/uL (0.83-4.51); Absolute Neutrophil Count 9.8 X10^3/uL (2.0-7.7); Basophil# 0.04 X10^3/uL; Basophil% 0.3 % (0-1); Eosinophil# 0.13 X10^3/uL; Hematocrit 30.5 % (37-47); Hemoglobin 10.2 g/dL (12.0-15.0); Lymphocyte # 2.31 X10^3/ul (0.83-4.51); Lymphocyte % 17.5 % (19-41); Mean Corp Hgb Conc 33.4 g/dL (32-36); Mean Corpuscular Hgb 30.9 pg (27.0-32.0); Mean Corpuscular Volume 92.4 fL (81-99); Monocyte# 0.83 X10^3/uL; Monocyte% 6.3 % (0-10); NRBC Flagged by Analyzer 0 % (0-5); Neutrophil # 9.81 X10^3/uL (2.7-7.7); Neutrophil % 74.1 % (47-70); Platelet Count 115 K/mm3 (150-450); RBC Distribution Width CV 12.6 % (11.6-14.6); RBC Distribution Width SD 42.4 fl (35.1-43.9); White Blood Count 13.2 K/mm3 (4.4-11.0)
[2021-01-24 09:30] VITALS: BP 110/61; PULSE 77; RESP 16; TEMP 36.1; O2SAT 97
[2021-01-24 12:00] VITALS: BP 111/70; PULSE 102; RESP 18; TEMP 36.4; O2SAT 96
--- NOTE | 2021-01-24 15:30 | CASEMGMT ---
Social Work Assessment Labor and Delivery Unit Patient Address: [address] [place] [address] Phone number: [phone] Date of Referral: 01/23/2021 Time of Referral: 1847 Referred By: Dr. Bowden'oswaldo Date of Intervention: 01/24/2021 Time of Intervention: 1530 Reason for Referral: THC use History obtained from: Medical records and mother of baby (MOB) Carmen Thompson; father of baby (FOB) Dorian Lagos present for part of conversation. Household composition: MOB and FOB report together, along with the MOB is 2 older children. Home situation is reportedly safe and adequate. Patient's parent/guardian status: MOB is a 25-year-old single female involved with the reported FOB for the last 2 years. FOB is 30 years old, born 12/30/1990. During private conversation with the MOB, MOB denied any domestic violence concerns. [place] baby is the first child for parents together. MOB has 2 older children's from a prior relationship. FOB reports also to have 2 older children, a boy who could be 8 but after due to delivery complications and possible substance exposure in utero. Reports to have a 7-year-old daughter who is in the custody of the grandmother. FOB reports plan to try to get custody of this child. MOB minor children include: Benjamin Stone (born 10/08/2014), Carmen Stone (born 08/31/2016), and baby janie Lagos (born 01/23/2021). Medical History: SANAM is 3, para 2 now 3 after delivering [place]. care started at 7 weeks gestation and regular thereafter. MOB with positive COVID diagnosis in April 2020. Baby janie Almazann weighed 6 pounds 6 ounces at . Apgars 9 at 1 and 5 minutes of life. Educational Status: SANAM graduated from high school, but did have an IEP in school for learning disability. History of low literacy. Financial Status: SANAM is on SSI disability for learning disability. The FOB works as a small engine mechanic. And will be is to receive child support for her older children. Supplies: MOB and FOB reported to have necessary infant supplies including car seat, safe sleep space, clothing, diapers, wipes. MOB is bottlefeeding and reports ability to purchase formula. Childcare/Caregiver(s): MOB will be the primary caregiver around the baby. Transportation: MOB does not drive, and relies on the FOB. Programs/Agencies Involved: MOB has medical and food assistance through job and family services. Reports interest in applying for WIC. Declines referrals to help me grow or early Headstart. Utilizing [facility] [employer], and community assistance with gas and electric. Children Services/Legal Issues: No reported legal issues. There was a dependency case after MOB first child was born, with [facility] children services. MOB denies any other history of children services involvement. Behavioral Health Issues: Mental Health History: MOB with a history of depression and anxiety reports some history of . Reports believe this was due to MOB really having to do everything alone with the older children and having limited support from the children's father. No reported history of any suicidal thoughts, planning, intent or attempts. No thoughts of harm to others. [place] depression screen a score of 1 during this assessment. Substance Use History: MOB endorses history of marijuana use in May to help with nausea. Reports that ceased use after that. Denies use of alcohol, prescription abuse, heroin, meth, or cocaine. Does not use tobacco. Family History: Maternal family history not discussed. FOB shares a history of substance use issues, using a little bit of everything, but clean for the last 3 years. Also a history of bipolar disorder and anxiety for the FOB. Drug Screens: Positive drug screen on 06/06/2020 for marijuana. Maternal drug screen was negative on 12/20/2020 and at time of delivery on 01/23/2021. Infant's urine drug screen is negative. Meconium is pending. Family/Social Stressors: No identified stressors at this time. Support Systems: MOB reports a good support from the FOB, and family who live in the area. Reports will have help at home going. Depression/Shaken Baby/Safe Sleeping: Reviewed safe sleeping and shaken baby prevention. Reviewed mood and anxiety disorders, risk factors, and the importance of seeking help and support. Let both parents be aware that both mothers and fathers are at risk for depression. ASSESSMENT: Met with the MOB and FOB together, and then along with the MOB. Parents were cooperative and engaged with this assembly instructions writer, as evidenced by both parents participating in conversation. Good eye contact for both. FOB (willingly when this assembly instructions writer asked, for completion on depression assessment. MOB denies any safety concerns with the FOB. Reports to feel the FOB is a good support. MOB reports that she was in part responsible for FOB being able to maintain sobriety over the last couple of years. MOB reports to have necessary supplies for the baby, and the support system to rely on if needed. MOB denies any continued substance use after initial positive drug screen. Let MOB know that substance exposure in utero does need to be reported to children services, though uncertain whether anything would be done with referral due to recent negative drug screens. MOB accepted information on [facility], mood and anxiety disorder packet and [facility] applications. Note, no voiced concerns by nursing staff regarding parent-child interactions or bonding. Safe Plan of Care for infant related to substance use: Abstain from any future marijuana use. Should use restart however, MOB would not use around or care for the children after using. PLAN: MOB and infant will discharge home. Community resource information has been provided. MOB reports intent to abstain from any future marijuana use. -PRANEETH Marrero MSW *This note was generated with [employer] dictation software. It may contain incorrect words, spelling, and punctuation that were not noted in review of the chart prior to signing*
[2021-01-24 17:00] VITALS: BP 109/64; PULSE 82; RESP 14; TEMP 36.6; O2SAT 98
--- NOTE | 2021-01-24 17:18 | PN.OBGYN_ITS ---
Subjective Subjective Doing well per patient and nursing staff. Ambulating and taking PO without difficulty. Voiding and passing flatus. Pain controlled. Bottle feeding. Denies headache, visual changes, chest pain, shortness of breath, leg pain or increased bleeding. Lochia normal. Objective Data Objective Data Vital Signs: Vital Signs Temp Pulse Resp BP Pulse Ox 97.6 F L 102 H 18 111/70 96 01/24/21 12:00 01/24/21 12:00 01/24/21 12:00 01/24/21 12:00 01/24/21 12:00 Oxygen Delivery Method Room Air Weight: 138 lb 10.732 oz Body Mass Index (BMI) 25.3 Intake & Output: Intake and Output for Last 24 Hours 01/22/21 01/23/21 01/24/21 23:59 23:59 23:59 Intake Total 2021.30 / 2021.30 Output Total 1480 / 1480 Balance 542.30 / 542.30 Lab / Micro Data Result Diagrams: 01/24/21 05:47 Labs: Laboratory Results - last 24 hr 01/23/21 18:15: WBC 17.8 H, RBC 3.84 L, Hgb 11.7 L, Hct 35.0 L, MCV 91.1, MCH 30.5, MCHC 33.4, RDW Std Deviation 41.4, RDW Coeff of Yasmin 12.7, Plt Count 122 L, MPV 12.1 H, Immature Gran % (Auto) 0.600, Neut % (Auto) 86.7 H, Lymph % (Auto) 8.4 L, [place] % (Auto) 4.0, Eos % (Auto) 0.1, Baso % (Auto) 0.2, Absolute Neuts (auto) 15.4 H, Absolute Lymphs (auto) 1.50, Nucleated RBC % 0 01/24/21 05:47: WBC 13.2 H, RBC 3.30 L, Hgb 10.2 L, Hct 30.5 L, MCV 92.4, MCH 30.9, MCHC 33.4, RDW Std Deviation 42.4, RDW Coeff of Yasmin 12.6, Plt Count 115 L, MPV 12.0, Immature Gran % (Auto) 0.800, Neut % (Auto) 74.1 H, Lymph % (Auto) 17.5 L, [place] % (Auto) 6.3, Eos % (Auto) 1.0, Baso % (Auto) 0.3, Absolute Neuts (auto) 9.8 H, Absolute Lymphs (auto) 2.31, Nucleated RBC % 0 ROS Constitutional Constitutional: Reports systems reviewed and no addt'l complaints, except as documented; Denies headache(s) Eyes Eyes: Denies acute decrease in peripheral vision, blurry vision or change in vision ENT HEENT: Reports systems reviewed and no addt'l complaints, except as documented Cardiovascular Cardiovascular: Denies chest pain or dizziness Respiratory/Chest Respiratory/Chest: Denies cough, dyspnea, dyspnea on exertion, shortness of breath at rest or shortness of breath with exertion Gastrointestinal Gastrointestinal: Denies abdominal pain, diarrhea, nausea or vomiting Genitourinary Genitourinary: Denies abdominal discomfort Musculoskeletal Musculoskeletal: Denies limited range of motion Integumentary Integumentary: Reports systems reviewed and no addt'l complaints, except as documented Neurologic Neurologic: Reports systems reviewed and no addt'l complaints, except as documented Psychiatric Psychiatric: Reports systems reviewed and no addt'l complaints, except as documented Endocrine Endocrinology: Reports systems reviewed and no addt'l complaints, except as documented Hematologic/Lymphatic Hematologic/Lymphatic: Reports systems reviewed and no addt'l complaints, except as documented Allergic/Immunologic Allergic/Immunologic: Reports systems reviewed and no addt'l complaints, except as documented Physical Exam Const alert and oriented x3 General Appearance: cooperative Orientation / Consciousness: awake, oriented to person, oriented to place and oriented to time Exam Limitations: no limitations HEENT normocephalic Head and Scalp: normal to inspection, normocephalic and atraumatic Face and Sinus: normal facial exam Eyes General Eye: normal appearance of both eyes Neck full ROM Chest Chest: symmetrical chest wall rise Resp normal respiratory effort and normal air movement Auscultation: clear to auscultation bilaterally Cardio regular rate, regular rhythm, S1 normal heart sound, S2 normal heart sound, no murmurs, no rub, no gallops and no clicks GI normal to inspection, nondistended, normoactive bowel sounds and non-tender GI Narrative: fundus firm 2 below U appearance of the vagina normal Bladder / Kidney Exam: no CVA tenderness Back/Spine normal ROM Extremity normal to inspection and full ROM Skin no rashes or lesions noted Neuro oriented x3, CN's II-XII intact bilaterally and moves all extremities Sensorium / Orientation: awake, alert and oriented to person Motor Exam: clonus absent Deep Tendon Reflexes: Rt Patellar (L4): 2+ and Lt Patellar (L4): 2+ Assessment & Plan (1) hemorrhage, delivered, current hospitalization: (2) (spontaneous vaginal delivery): COMMENT: PPD #1 PLAN: 1) Routine PP and discharge instructions. 2) Hgb stable, ferrous sulfate 325mg PO once daily upon discharge 3) Follow up in 2 weeks and 6 weeks PP 4) VSS 5) Discharge home today.
--- NOTE | 2021-01-24 17:21 | PCM.DC.SUM ---
Providers Date of Admission: 01/23/21 Primary Care Physician: No Primary Care Phys Reason For Visit: VAGINAL DELIVERY Diagnosis Discharge Diagnosis (1) hemorrhage, delivered, current hospitalization: Status: Acute Code(s): O72.1 - Other immediate hemorrhage (2) (spontaneous vaginal delivery): Status: Acute Code(s): O80 - Encounter for full-term uncomplicated delivery Medications at Discharge Home Medications vit-iron fum-folic ac 1 tab PO DAILY 01/23/21 acetaminophen 1,000 mg PO Q6H PRN PRN #0 tab 01/24/21 naproxen 500 mg PO Q8H PRN PRN #30 tab 01/24/21 Weight / BMI Weight Weight: 138 lb 10.732 oz Body Mass Index (BMI) 25.3 ABG / Lab / Microbiology Data Result Diagrams: 01/24/21 05:47 Laboratory: Laboratory Results - last 24 hr 01/23/21 18:15: WBC 17.8 H, RBC 3.84 L, Hgb 11.7 L, Hct 35.0 L, MCV 91.1, MCH 30.5, MCHC 33.4, RDW Std Deviation 41.4, RDW Coeff of Yasmin 12.7, Plt Count 122 L, MPV 12.1 H, Immature Gran % (Auto) 0.600, Neut % (Auto) 86.7 H, Lymph % (Auto) 8.4 L, [place] % (Auto) 4.0, Eos % (Auto) 0.1, Baso % (Auto) 0.2, Absolute Neuts (auto) 15.4 H, Absolute Lymphs (auto) 1.50, Nucleated RBC % 0 01/24/21 05:47: WBC 13.2 H, RBC 3.30 L, Hgb 10.2 L, Hct 30.5 L, MCV 92.4, MCH 30.9, MCHC 33.4, RDW Std Deviation 42.4, RDW Coeff of Yasmin 12.6, Plt Count 115 L, MPV 12.0, Immature Gran % (Auto) 0.800, Neut % (Auto) 74.1 H, Lymph % (Auto) 17.5 L, [place] % (Auto) 6.3, Eos % (Auto) 1.0, Baso % (Auto) 0.3, Absolute Neuts (auto) 9.8 H, Absolute Lymphs (auto) 2.31, Nucleated RBC % 0 Meaningful Use Info Meaningful Use Diagnoses (Choose all that apply): None applicable Discharge Plan Admission Admit Date/Time: 01/23/21 09:25 Primary Reason for Your Visit: Vaginal Delivery Attending Provider: Sofi Barton Primary Care Provider: Care Physician,No Primary Instructions Patient Instructions: Anemia, After a Vaginal Additional Instructions / Restrictions: Follow up in 2 weeks for virtual or in office visit and 6 weeks for visit. Discharge Orders/Prescriptions Prescriptions: New acetaminophen 500 mg Tablet 1,000 mg PO Q6H PRN PRN (Reason: Pain 1-10 Or Fever) Qty: 0 RF: 0 naproxen 500 mg Tablet 500 mg PO Q8H PRN PRN (Reason: Pain Score 1-3) Qty: 30 RF: 0 Continued vit-iron fum-folic ac 60 mg iron-1 mg Tablet 1 tab PO DAILY RF: 0 Discontinued ondansetron 4 MG tablet 4 mg PO Q8H PRN PRN (Reason: Nausea) Qty: 10 RF: 0 Referrals / Follow Up: Care Physician,No Primary [Primary Care Provider] - Disposition Disposition (needs filled in before D/C Order can be placed): Home, Self Care
--- NOTE | 2021-01-28 16:52 | CASEMGMT ---
Social Work Labor and Delivery Unit Spoke with Ashley Arteaga at [facility] services, , extension [phone]. Referral due to substance exposed infant in utero, based on first trimester drug screen, as well as family history of children services involvement. Updated that both mom and baby's urine drug screens at time of delivery were negative. Brief maternal and history is provided. Notified that meconium drug screen is pending. -CAROL Marrero, GYROSCOPIC INSTRUMENT TESTER *This note was generated with [email or web address] software. It may contain incorrect words, spelling, and punctuation that were not noted in review of the chart prior to signing*
--- NOTE | 2021-01-28 16:54 | CASEMGMT ---
Social Work Labor and Delivery Unit Spoke with Ashley Arteaga at [facility], , extension [phone]. 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 Brief maternal and infant history is provided. Notified that meconium drug screen is pending. -CAROL Marrero, WORKFORCE DEVELOPMENT ASSISTANT *This note was generated with Flow[employer] software. It may contain incorrect words, spelling, and punctuation that were not noted in review of the chart prior to signing*
--- NOTE | 2021-02-18 14:31 | CASEMGMT ---
Social Work Labor and Delivery Meconium drug screen results are back and negative for any drugs of abuse. No further referrals are indicated. -CAROL Marrero, SUPERINTENDENT PIER
== END 2021-01-24 17:30 | disposition home or self-care (01) | DRG 560 ==
LOC: WPOUT 09:32 → WP 09:32
PROVIDERS: Admitting Provider Advanced Practice Midwife; Referring Provider Advanced Practice Midwife; Visit Provider Advanced Practice Midwife
DX: O48.0 Post-term pregnancy (principal); O72.1 Other immediate postpartum hemorrhage; O99.12 Other diseases of the blood and blood-forming organs and certain disorders involving the immune mechanism complicating childbirth; D69.6 Thrombocytopenia, unspecified; O98.82 Other maternal infectious and parasitic diseases complicating childbirth; B95.1 Streptococcus, group B, as the cause of diseases classified elsewhere; O99.824 Streptococcus B carrier state complicating childbirth; Z37.0 Single live birth; Z3A.40 40 weeks gestation of pregnancy
CPT/HCPCS: 59025; 59050; 80307; 84112; 85025; 86850; 86900; 86901; 99218; J7120; G0378; J3490